=== PATIENT | female | born 1935 | race Caucasian/White ===

== ENCOUNTER 2024-11-28 18:01 | Emergency (ER) | payer MEDICARE ==
[~2024-11-28] VITALS: Ht 170.2 cm; Wt 53.1 kg
[2024-11-28] MEDS ORDERED: OXYMETAZOLINE HCL NASAL SPRAY 30 ML BOTTLE NS ONE (19:23)
[2024-11-28] MEDS ORDERED: TRANEXAMIC ACID 1,000 MG/10 ML VIAL ONE (19:23)
[2024-11-28] MEDS: OXYMETAZOLINE HCL NASAL SPRAY 30 ML BOTTLE NS ONE (20:00)
[2024-11-28] MEDS: TRANEXAMIC ACID 1,000 MG/10 ML VIAL NS ONE (20:00)
[2024-11-28 21:23] VITALS: BP 135/80; TEMP 98.4; O2SAT 98
== END 2024-11-28 21:23 | disposition home or self-care (01) ==
LOC: ER 18:14
DX: S00.33XA Contusion of nose, initial encounter (principal); R04.0 Epistaxis; I10 Essential (primary) hypertension; I48.91 Unspecified atrial fibrillation; Z79.01 Long term (current) use of anticoagulants; W22.03XA Walked into furniture, initial encounter; Y93.89 Activity, other specified; Y92.89 Other specified places as the place of occurrence of the external cause; Y99.8 Other external cause status
CPT/HCPCS: 70486-TC